=== PATIENT | female | born 1985 | race Hispanic/Latino ===

== ENCOUNTER 2024-10-16 06:29 | Day surgery (SDC) | payer OTHER, SELFPAY ==
[2024-10-12 11:53] VITALS: BMI 51.3
[2024-10-16] VITALS (8 sets, daily range): BP systolic 116–137; BP diastolic 66–80; PULSE 78–100; RESP 11–18; TEMP 36.1–36.4; O2SAT 6–100; BMI 49.8
--- NOTE | 2024-10-16 | PATH_ITS ---
[facility] Accession Number: [id number] No. of containers..01 Tissue . 01 Material submitted: . endometrium - ENDOMETRIAL CURRETTINGS . 01 Clinical history: . ORIGINAL CONTAINER CRACKED IN TRANSIT. . 01 Diagnosis: ENDOMETIAL CURETTINGS: Portions of weakly proliferative endometrium; negative for endometrioid intraepithelial neoplasia or malignancy. Some endometrial fragments demonstrate prominent vessels, suggestive of polyp, if clinical and imaging studies are concordant. Small fragments of myometrium; negative for significant atypia. MRV 10/22/2024 1356 Local . 01 Electronically signed: . Zeina Horvath MD, Pathologist NPI- [id number] . 01 Gross description: . ENDOMETRIAL CURRETTINGS: Received in formalin are minute fragments of mucoid and hemorrhagic material measuring 3.0 x 3.0 x 0.3 cm in aggregate. Submitted in toto in 1 cassette. /MARCK 10/20/2024 0016 Local . 01 Pathologist provided ICD-10: N92.0 . 01 CPT . 392395 Specimen Comment: A courtesy copy of this report has been sent to [phone] Performed at: [address] [id number] MD Corey Soto MD Phone: [phone]
[2024-10-16] MEDS: LACTATED RINGERS 1,000 ML 42 ML IV ×2 (06:56→09:05)
--- NOTE | 2024-10-16 08:17 | PM.GYNHP.1 ---
History of Present Illness History of Present Illness Reason for admission: vaginal bleeding Narrative: Lupe Paniagua is a 39 year old female 7 para 5 who presents for a D&C hysteroscopy, possible resection of polyp or fibroid, and NovaSure endometrial ablation. This is being done due to menorrhagia and endometrial hyperplasia on ultrasound. Endometrial biopsy in the office was normal. Pap smear was normal. [facility] Surgical History S/P wisdom tooth extraction History of tubal ligation History of ankle surgery Hx laparoscopic cholecystectomy Social History household members: family Smoking Status: Never smoker Meds Home Medications and Allergies Home Medications Medication Instructions Recorded Confirmed Type No Known Home Medications 10/01/24 10/16/24 History Allergies Allergy/AdvReac Type Severity Reaction Status Date / Time labetalol Allergy Mild Hives Verified 10/16/24 06:39 Exam Vital Signs (past 8 hours): - 10/16/24 06:57 Temperature 97.3 F L Pulse Rate 84 Respiratory Rate 16 Blood Pressure 129/80 Pulse Oximetry 97 Oxygen Delivery Method Room Air Oxygen Delivery Method Room Air Narrative Exam Narrative: HEENT: No thyromegaly, no anterior cervical or supraclavicular lymphadenopathy. Lungs:Clear to auscultation bilaterally, no wheezes. Cardiovascular: Regular rate and rhythm, no murmurs, rubs, or gallops. Abdomen: No scars. No hepatosplenomegaly. No masses palpable. External genitalia: Normal Vagina: Normal Cervix: Normal, parous. Bimanual exam: 8 Week size anteverted uterus. Mobile. Extremities: No edema Assessment & Plan Assessment & Plan narrative: Assessment: 39-year-old 7 para 5 with menorrhagia and endometrial hyperplasia on ultrasound Negative endometrial biopsy in the office Plan: D&C hysteroscopy with possible resection of fibroid or polyp, and NovaSure endometrial ablation The risks, benefits, and alternatives to the procedure were explained to the patient. The risks including bleeding, infection, and uterine perforation. She understands these risks and agrees to proceed. A full par Q was held and consent form was signed. Time-Based Coding :: [TOTAL MINUTES] spent with patient and on the chart (including review of chart, obtaining history, exam, reviewing outside data, placing orders, documenting exam and treatment plan, and counseling patient) on [DATE].
--- NOTE | 2024-10-16 08:20 | PM.PREOP ---
Pre-operative Note Interval Note History & Physical reviewed/Exam performed by Physician: Yes Changes to H&P: No H&P completed within 30 days and has changed as indicated here:: 10/16/24
--- NOTE | 2024-10-16 08:48 | SUR.OPER ---
Lithotomy on padded OR bed, head on pillow, arms secured on padded arm boards at <90 degrees abduction. Legs secured in padded yellow fins stirrups.
--- NOTE | 2024-10-16 09:04 | PM.GYNOP.1 ---
Operative Date/Time/Diagnoses Date of procedure: 10/16/24 Time of procedure: 09:04 Pre-op diagnosis: Menorrhagia Thickened endometrial lining on ultrasound Post-op diagnosis: same Procedure & Clinicians Procedure: Procedures Operation Date: 10/16/24 07:45 Actual Procedure Side Surgeon p Hysteroscopy D&C w/ Novasure Endometrial Ablation Ruchi Paul MD Indications: 39-year-old with menorrhagia and a thickened endometrial lining on ultrasound Surgeon: Ruchi Paul Anesthesia Type: General (LMA) Operative Notes Findings: 8 week size anteverted uterus Both fallopian tube ostia observed Thickened endometrial lining throughout Closure Type: not applicable Specimen(s): endometrial curettings Estimated blood loss (mL): 5 Blood products transfused: none Procedure in detail: After informed consent was obtained, the patient was taken to the operating room where she was placed in the dorsal supine position. After adequate LMA general anesthesia was achieved, she was placed in the dorsal lithotomy position, and prepped and draped in the usual sterile fashion. A time-out was performed. A bivalve speculum was placed into the vagina and the anterior lip of the cervix was grasped with a single-tooth tenaculum. The cervical os was sequentially dilated to the # 8 Hegar dilator. The MyoSure hysteroscope passed easily into the endometrial cavity. Both fallopian tube ostia were observed. There was thickened endometrium throughout. No discrete polyps. Using the MyoSure Lite, resection of the thickened endometrial areas was performed. The MyoSure hysteroscope was removed from the uterus. The uterus was measured from the internal os to the fundus of the uterus and measured 6 cm. This was set on the NovaSure catheter as well as the generator. The NovaSure catheter passed easily into the endometrial cavity. It was opened. The width of the uterus was 3.8 cm. This indicated a power of 125 w. The cervix was capped, the cavity assessment was performed and passed. The cycle lasted 1 minute and 34 seconds. At the completion of the cycle the cervix was uncapped, the NovaSure catheter was closed and removed from the uterus. The single-tooth tenaculum was removed from the anterior lip of the cervix. The bivalve speculum was removed from the vagina. On the MyoSure: 130 cc deficit 1180 cc total fluid 80 mmHg final pressure 56 seconds cutting time 100 mmHg max pressure Complications: none Post-operative Condition: stable Disposition: PACU Plan for aftercare: Home after recovery
[2024-10-16] MEDS: fentaNYL 100 MCG/2 ML INJ IV ×2 (09:21→09:26)
[2024-10-16] MEDS: OXYCODONE IR 5 MG TABLET PO ×2 (09:24→10:15)
== END 2024-10-16 10:31 | disposition home or self-care (01) ==
PROVIDERS: PCP Family Medicine; Referring Provider Obstetrics & Gynecology; Visit Provider Obstetrics & Gynecology
PROC: 0U5B8ZZ Destruction of Endometrium, Via Natural or Artificial Opening Endoscopic (ICD-10-PCS; CPT 58563; principal; 2024-10-16 07:45)
DX: N92.0 Excessive and frequent menstruation with regular cycle (principal); N85.00 Endometrial hyperplasia, unspecified
CPT/HCPCS: 58563; J1100; J2405; J2704; J3010